=== PATIENT | female | born 1960 | race Caucasian/White ===

== ENCOUNTER 2018-12-30 18:55 | Emergency (ER) | payer SELFPAY ==
--- NOTE | 2018-12-30 19:35 | NUR ---
PATIENT LEFT WITHOUT BEING SEEN BY DR. HA. NO FURTHER CARE PROVIDED FOR PATIENT.
== END 2018-12-30 19:33 | disposition left against medical advice (07) ==
LOC: MED 18:55
DX: Z53.21 Procedure and treatment not carried out due to patient leaving prior to being seen by health care provider (principal)